=== PATIENT | female | born 1965 | race Caucasian/White ===

== ENCOUNTER 2018-08-26 01:06 | Outpatient (CLI) | payer OTHER, SELFPAY ==
--- NOTE | 2018-08-26 07:45 | DI.MAMMO_ITS ---
SYMPTOMS/DIAGNOSIS: SCREENING, Z12.31 MAMMOGRAM: Mammograms were interpreted according to the usual protocol including computer analysis with CAD system, tomosynthesis and C view imaging. Comparison with prior examinations. Breast density C. No suspicious masses or microcalcifications are seen. There is no definite evidence of malignancy. IMPRESSION: Negative mammogram. Routine screening is recommended. Category I. MQSA ASSESSMENT OF FINDINGS: Negative. Category 1. Patient will receive a letter notifying them of these results. Bi-RADS category C. The breasts are heterogeneously dense, which may obscure small masses.
== END 2018-08-26 01:26 ==
PROVIDERS: Visit Provider Nurse Practitioner Family
DX: Z12.31 Encounter for screening mammogram for malignant neoplasm of breast (principal)
CPT/HCPCS: 77063; 77067

== ENCOUNTER 2019-05-04 02:27 | Outpatient (CLI) | payer OTHER, SELFPAY ==
[2019-05-04 07:44] LABS: Abs Immature Grans 0.01 k/cumm (0.0-0.09); Absolute Basophil Count 0.05 k/cumm (0.0-0.2); Absolute Eosinophil Count 0.12 k/cumm (0.0-0.7); Absolute Lymphocyte Count 1.38 k/cumm (1.2-3.4); Absolute Monocyte Count 0.33 k/cumm (0.11-0.7); Absolute Neutrophil Count 2.65 k/cumm (1.2-6.7); Basophils % 1.1; Eosinophils % 2.6; HCT 37.6 % (36.0-46.0); HGB 12.5 g/dL (12.0-15.5); Immature Grans % 0.2; Lymphocytes % 30.4; Mean Corp. HGB Concentration 33.2 g/dL (32.0-36.0); Mean Corpuscular Volume 87.2 fL (80-95); Mean Platelet Volume 10.2 fL (8.0-11.0); Monocytes % 7.3; Neutrophils % 58.4; Platelet Count 198 x1000/uL (130-400); RBC 4.31 m/cumm (4.00-5.20); RBC Distribution Width 13.1 % (11.7-14.6); White Blood Cell Count 4.54 k/cumm (4.4-10.8)
[2019-05-04 08:09] LABS: Hemoglobin A1C 5.5 % (4.5-6.2)
[2019-05-04 08:56] LABS: ALT 20 U/L (14-59); AST 6 U/L (15-37); Albumin 3.7 g/dL (3.4-5.0); Alkaline Phosphatase 61 U/L (46-116); BUN 14 mg/dL (7-18); Bilirubin, Total 0.4 mg/dL (0.2-1.0); CREATININE 0.69 mg/dL (0.55-1.02); Calcium 8.9 mg/dL (8.5-10.1); Calculated LDL 74 mg/dL; Chloride 105 mmol/L (98-107); Cholesterol 153 mg/dL (50-200); Glucose 89 mg/dL (70-100); HDL Cholesterol 69 mg/dL (40-60); Potassium 4.5 mmol/L (3.5-5.1); Sodium 140 mmol/L (136-145); Total Protein 6.7 g/dL (6.4-8.2); Triglyceride 52 mg/dL (30-150)
== END 2019-05-04 02:47 ==
PROVIDERS: PCP Nurse Practitioner Family; Visit Provider Nurse Practitioner Family
DX: Z00.00 Encounter for general adult medical examination without abnormal findings (principal); Z13.220 Encounter for screening for lipoid disorders; Z13.228 Encounter for screening for other metabolic disorders; Z13.0 Encounter for screening for diseases of the blood and blood-forming organs and certain disorders involving the immune mechanism; Z13.1 Encounter for screening for diabetes mellitus
CPT/HCPCS: 36415; 80053; 80061; 83036; 85025

== ENCOUNTER 2019-09-13 01:32 | Outpatient (CLI) | payer OTHER, SELFPAY ==
--- NOTE | 2019-09-13 13:12 | DI.MAMMO_ITS ---
EXAM: MG MAMMO SCREENING CLINICAL HISTORY: Screening,z12.39 TECHNIQUE: Bilateral full field digital CC and MLO mammographic images were obtained with 3D tomosyn thesis and utilizing computer aided detection (CAD). COMPARISON: Available for comparison. FINDINGS: Masses/Architectural Distortion: None seen. Microcalcifications: No suspicious pleomorphic-type are seen. Skin Thickening/Nipple Retraction: None. IMPRESSION: 1. No significant interval change with no specific features of malignancy noted. 2. Unless there is more urgent need, screening mammography is recommended, as per [employer] guidelines. ACR BI-RAD Category- 1 Negative Breast Density - Category C - Heterogeneously dense The mammogram demonstrates the patient's breast tissue is dense. Dense breast tissue is very common a nd is not abnormal but dense breast tissue can make it harder to find cancer on a mammogram. Also, de nse breast tissue may increase their breast cancer risk. This information about the result of the [facility] mogram report was provided to the patient to raise their awareness. Use this report when you speak wi th the patient about their risks for breast cancer, which includes their family history. At that time , you may recommend for more screening tests (Ultrasound or MRI) as they might be useful based on the ir risk. A negative radiographic report should not delay biopsy if a dominant or clinically suspicious mass is present. Up to ten percent of cancers are not identified on mammography. A negative report may reinforce clinical impression. Adenosis and dense breasts may obscure an underlying neoplasm. False positive reports average 6 to 10%. Patient will receive a letter notifying them of these results.
== END 2019-09-13 01:52 ==
PROVIDERS: PCP Nurse Practitioner Family; Visit Provider Nurse Practitioner Family
DX: Z12.31 Encounter for screening mammogram for malignant neoplasm of breast (principal)
CPT/HCPCS: 77063; 77067

== ENCOUNTER 2019-10-24 07:14 | Outpatient (CLI) | payer OTHER, SELFPAY ==
[2019-10-24 08:16] LABS: Bilirubin Negative (Negative); Blood Negative (Negative); Clarity Clear (Clear); Glucose Negative (Negative); Ketones Negative (Negative); Leukocyte Esterase Negative (Negative); Nitrite Negative (Negative); Specific Gravity 1.025 (1.005-1.025); Urobilinogen 0.2 EU/dL (Up TO 0.2); pH 5.5 (5-8)
[2019-10-24 09:02] LABS: Anion Gap 7.2 mmol/L (3-11); BUN 13 mg/dL (7-18); CO2 29.8 mmol/L (21.0-32.0); CREATININE 0.79 mg/dL (0.55-1.02); Calcium 8.6 mg/dL (8.5-10.1); Chloride 103 mmol/L (98-107); Glucose 92 mg/dL (74-106); Potassium 4.4 mmol/L (3.5-5.1); Sodium 140 mmol/L (136-145)
[2019-10-24 09:02] LABS: Microalb ug/mg Crea 2.8 ug/mg Cr
== END 2019-10-24 07:34 ==
PROVIDERS: PCP Nurse Practitioner Family; Visit Provider Transplant Surgery
DX: Z00.5 Encounter for examination of potential donor of organ and tissue (principal)
CPT/HCPCS: 36415; 80048; 86900; 86901; 81003; 82043; 82570; 87086

== ENCOUNTER 2020-10-03 01:21 | Outpatient (CLI) | payer OTHER, SELFPAY ==
--- NOTE | 2020-10-03 12:54 | DI.MAMMO_ITS ---
EXAM: MAMMO SCREENING CLINICAL HISTORY: screening,Z12.39 TECHNIQUE: Mammograms were interpreted according to the usual protocol including computer analysis w [employer] CAD system, tomosynthesis and C-view imaging. COMPARISON: 2011 through 2019 FINDINGS: The breasts are composed of heterogeneously dense fibroglandular densities, Breast Density category C . No suspicious masses or suspicious microcalcifications are seen. No skin thickening or abnormal axillary lymph nodes are seen. There has been no significant change from prior exams. Mild vascular calcifications are incidentally noted. IMPRESSION: BI-RADS Category 1, Negative mammogram. Yearly screening mammography is recommended. Breast Density Category C, heterogeneously Dense. The mammogram demonstrates the patient's breast tissue is dense. Dense breast tissue is very common a nd is not abnormal but dense breast tissue can make it harder to find cancer on a mammogram. Also, de nse breast tissue may increase breast cancer risk. This information about the result of the mammogram report was provided to the patient to raise their awareness. Use this report when you speak with the patient about their risks for breast cancer, which includes their family history. At that time, you may recommend additional screening tests (Ultrasound or MRI) as they might be useful based on their r isk. A negative radiographic report should not delay biopsy if a dominant or clinically suspicious mass is present. Up to ten percent of cancers are not identified on mammography. A negative report may reinforce clinical impression. Adenosis and dense breasts may obscure an underlying neoplasm. False positive reports average 6 to 10%.
== END 2020-10-03 01:22 ==
PROVIDERS: PCP Nurse Practitioner Family; Visit Provider Nurse Practitioner Family
DX: Z12.31 Encounter for screening mammogram for malignant neoplasm of breast (principal)
CPT/HCPCS: 77063; 77067

== ENCOUNTER 2020-10-03 12:38 | Outpatient (REF) | payer OTHER, SELFPAY ==
--- NOTE | 2020-10-03 11:30 | PAPFT_PTH ---
PATIENT: Danielle Kim LOC: [facility] U#:[id number] AGE/SX: 55/F ROOM: RE10/03/[address]: CHARO Mojica : 1965 BED: DIS: 10/03/2020 SPEC #: [id number] RECD: 10/03/20 17:52 STATUS: SHAJI RERoque #: [id number] LORRIE: 10/03/20 11:[address]: Jenifer Meehan DEPT: [facility] Cytology RECD BY: Tanya Ramirez ENTERED: 10/03/20 17:53 SP TYPE: PAPFT BOLA DR: CHARO Hartman Tissues: 1 - CX/ENDOCX FOR PAP SMEARS Procedures: PAP THIN PREP/UVM Screening HPV DNA PROBE Comments: [id number]
== END 2020-10-03 12:39 | disposition home or self-care (01) ==
LOC: LBN 12:38
PROVIDERS: PCP Nurse Practitioner Family; Visit Provider Nurse Practitioner Family
DX: Z12.4 Encounter for screening for malignant neoplasm of cervix (principal); Z11.51 Encounter for screening for human papillomavirus (HPV)
CPT/HCPCS: 88142; 87624

== ENCOUNTER 2021-08-25 14:06 | Outpatient (REF) | payer OTHER, SELFPAY | END 2021-08-25 14:07 | disposition home or self-care (01) | LOC: LBN 14:06 | PROVIDERS: PCP Nurse Practitioner Family; Visit Provider Nurse Practitioner Family ==

== ENCOUNTER 2021-09-10 11:55 | Outpatient (REF) | payer OTHER, SELFPAY ==
[2021-09-10 16:54] LABS: Bilirubin Negative (Negative); Blood Negative (Negative); Clarity Clear (Clear); Glucose Negative (Negative); Ketones Negative (Negative); Leukocyte Esterase Negative (Negative); Nitrite Negative (Negative); Specific Gravity >= 1.030 (1.005-1.025); Urobilinogen 0.2 EU/dL (Up TO 0.2); pH 5.5 (5-8)
[2021-09-10 18:28] LABS: Anion Gap 4.2 mmol/L (3-11); BUN 20 mg/dL (7-18); CO2 32.8 mmol/L (21.0-32.0); CREATININE 1.1 mg/dL (0.55-1.02); Calcium 9.4 mg/dL (8.5-10.1); Chloride 102 mmol/L (98-107); Estimated GFR 51.57 (mL/min/1.73m2); Glucose 92 mg/dL (74-106); Sodium 139 mmol/L (136-145)
[2021-09-10 18:31] LABS: COMMENT (LAB VIEW ONLY) 181.46 mg/dL; Microalb ug/mg Crea 2.8 ug/mg Cr
== END 2021-09-10 13:02 | disposition home or self-care (01) ==
LOC: LBO 11:55
PROVIDERS: PCP Nurse Practitioner Family; Visit Provider Transplant Surgery
DX: Z52.9 Donor of unspecified organ or tissue (principal)
CPT/HCPCS: 36415; 80048; 81003; 82043; 82570

== ENCOUNTER 2021-10-01 01:53 | Outpatient (CLI) | payer OTHER, SELFPAY ==
[2021-10-01 14:19] LABS: Bilirubin Negative (Negative); Blood Negative (Negative); Clarity Clear (Clear); Glucose Negative (Negative); Ketones Negative (Negative); Leukocyte Esterase Negative (Negative); Nitrite Negative (Negative); Specific Gravity 1.015 (1.005-1.025); Urobilinogen 0.2 EU/dL (Up TO 0.2); pH 5.5 (5-8)
[2021-10-01 15:40] LABS: Anion Gap 8.2 mmol/L (3-11); BUN 19 mg/dL (7-18); CO2 28.8 mmol/L (21.0-32.0); CREATININE 1.1 mg/dL (0.55-1.02); Calcium 9.4 mg/dL (8.5-10.1); Chloride 103 mmol/L (98-107); Estimated GFR 51.38 (mL/min/1.73m2); Glucose 87 mg/dL (74-106); Potassium 4.6 mmol/L (3.5-5.1); Sodium 140 mmol/L (136-145)
== END 2021-10-01 01:54 | disposition home or self-care (01) ==
LOC: LBO 01:53
PROVIDERS: PCP Nurse Practitioner Family; Visit Provider Transplant Surgery
DX: Z52.89 Donor of other specified organs or tissues (principal)
CPT/HCPCS: 36415; 80048; 81003

== ENCOUNTER → 2022-01-01 00:33 | Outpatient (CLI) | payer OTHER, SELFPAY ==
--- NOTE | 2022-01-01 12:50 | DI.MAMMO_ITS ---
Exam(s) MAMMO SCREENING EXAM: MAMMO SCREENING CLINICAL HISTORY: screening TECHNIQUE: Mammograms were interpreted according to the usual protocol including computer analysis w [employer] CAD system, tomosynthesis and C-view imaging. COMPARISON: FINDINGS: The breasts are heterogeneously dense. No dominant mass or clumped microcalcification is identified in either breast. The current examination is compared with previous examinations including September 2020 and there has been no gross interval change in appearance in comparison with the prior studies. IMPRESSION: No specific evidence of malignancy at this time. Routine screening examinations are suggested at yea rly intervals in this age group according to the ACS ACR guidelines. BI-RADS Category 1 - Negative Breast Density - Category C - Heterogeneously dense
== END ==
PROVIDERS: PCP Nurse Practitioner Family; Visit Provider Nurse Practitioner Family
DX: Z12.31 Encounter for screening mammogram for malignant neoplasm of breast (principal)
CPT/HCPCS: 77063; 77067

== ENCOUNTER 2022-03-25 03:24 | Outpatient (CLI) | payer OTHER, SELFPAY ==
[2022-03-25 10:15] LABS: Bilirubin Negative (Negative); Blood Negative (Negative); Clarity Clear (Clear); Glucose Negative (Negative); Ketones Negative (Negative); Leukocyte Esterase Negative (Negative); Nitrite Negative (Negative); Urobilinogen 0.2 EU/dL (Up TO 0.2); pH 5.5 (5-8)
[2022-03-25 10:37] LABS: Anion Gap 3.5 mmol/L (3-11); BUN 18 mg/dL (7-18); CO2 31.5 mmol/L (21.0-32.0); Calcium 9.1 mg/dL (8.5-10.1); Chloride 103 mmol/L (98-107); Estimated GFR 57.35 (mL/min/1.73m2); Glucose 98 mg/dL (74-106); Potassium 4.5 mmol/L (3.5-5.1); Sodium 138 mmol/L (136-145)
[2022-03-25 10:41] LABS: COMMENT (LAB VIEW ONLY) 56.09 mg/dL; Microalb ug/mg Crea 12.1 ug/mg Cr
== END 2022-03-25 03:25 | disposition home or self-care (01) ==
LOC: LBO 03:25
PROVIDERS: PCP Nurse Practitioner Family; Visit Provider Transplant Surgery
DX: Z52.4 Kidney donor (principal)
CPT/HCPCS: 36415; 80048; 81003; 82043; 82570

== ENCOUNTER 2022-05-06 09:40 | Outpatient (CLI) | payer OTHER, SELFPAY ==
[2022-05-06 12:06] LABS: Hemoglobin A1C 5.4 % (<5.7)
== END 2022-05-06 09:41 | disposition home or self-care (01) ==
LOC: LBO 09:40
PROVIDERS: PCP Nurse Practitioner Family; Visit Provider Transplant Surgery
DX: Z52.9 Donor of unspecified organ or tissue (principal)
CPT/HCPCS: 36415; 83036

== ENCOUNTER 2023-01-18 10:50 | Outpatient (REF) | payer OTHER, SELFPAY ==
--- NOTE | 2023-01-18 10:45 | DI.RAD_ITS ---
Exam(s) XR HUMERUS RT EXAM: XR HUMERUS RT CLINICAL HISTORY: evaluate patholgoy. TECHNIQUE: 2D digital imaging was performed. COMPARISON: No exams were available for comparison FINDINGS: 3 views No evidence of humerus fracture or dislocation. Main finding is a prominent chunk of calcification in the rotator cuff region subacromial space consi stent with calcific rotator cuff tendinitis. IMPRESSION: Calcific rotator cuff tendinitis/bursitis. DATA REPOSITORY: RADIATION DOSE DELIVERED:
--- NOTE | 2023-01-18 10:45 | DI.RAD_ITS ---
Exam(s) XR SHOULDER RT COMPLETE 2+V EXAM: XR SHOULDER RT COMPLETE 2+V CLINICAL HISTORY: evaluate pathology. TECHNIQUE: 2D digital imaging was performed. COMPARISON: No exams were available for comparison FINDINGS: Four views: No evidence of acute fracture or dislocation nor diminution of the subacromial space. No degenerativ e changes. The main finding here is a prominent chunk of calcium in the lateral subacromial space ju st above the greater tuberosity consistent with calcific rotator cuff tendinitis-bursitis. This calc ific density measures approximately 11 by 4 mm. IMPRESSION: Calcific rotator cuff tendinitis. DATA REPOSITORY: RADIATION DOSE DELIVERED:
--- NOTE | 2023-01-18 11:22 | DI.VRAD_ITS ---
PROCEDURE INFORMATION: Exam: XR Right Humerus Exam date and time: 01/18/2023 10:59 AM Age: 57 years old Clinical indication: Pain; Upper arm; Right TECHNIQUE: Imaging protocol: Radiologic exam of the right humerus. Views: 2 or more views. COMPARISON: No relevant prior studies available. FINDINGS: Bones/joints: No fractures or suspicious osseous lesions are identified in the right humerus. Soft tissues: There is a crescentic focus of calcification in the soft tissues of the acromiohumeral interval which may reflect calcific rotator cuff tendinopathy or calcific bursitis. IMPRESSION: 1. No abnormality identified in the right humerus. 2. Findings suggesting calcific rotator cuff tendinopathy or calcific bursitis in the right shoulder. Dictated and Authenticated by: Josette Pritchard MD. Ordering:SHIRLEY Velarde MD
--- NOTE | 2023-01-18 11:24 | DI.VRAD_ITS ---
PROCEDURE INFORMATION: Exam: XR Right Shoulder Exam date and time: 01/18/2023 11:02 AM Age: 57 years old Clinical indication: Pain; Shoulder; Left TECHNIQUE: Imaging protocol: Radiologic exam of the right shoulder. Views: 5 views. COMPARISON: No relevant prior studies for comparison. FINDINGS: Bones/joints: No fractures or suspicious osseous lesions are identified. Acromioclavicular and glenohumeral alignment are anatomic. Joint spaces are maintained. There are no significant osseous productive changes. The humeral head is not high-riding. Soft tissues: There is a crescentic focus of calcification in the soft tissues superior to the greater tuberosity. This can be seen with calcific rotator cuff tendinopathy or calcific bursitis. IMPRESSION: Calcific rotator cuff tendinopathy or calcific bursitis in the right shoulder. Dictated and Authenticated by: Josette Pritchard MD. Ordering:SHIRLEY Velarde MD
== END 2023-01-18 11:10 ==
LOC: DI 10:50
PROVIDERS: PCP Nurse Practitioner Family; Visit Provider Nurse Practitioner Family
DX: M75.31 Calcific tendinitis of right shoulder; M25.511 Pain in right shoulder
CPT/HCPCS: 73030; 73060

== ENCOUNTER 2023-02-03 14:08 | Outpatient (CLI) | payer OTHER, SELFPAY ==
[2023-02-03 15:19] LABS: COMMENT (LAB VIEW ONLY) 72.32 mg/dL
[2023-02-03 15:20] LABS: Bilirubin Negative (Negative); Blood Negative (Negative); Clarity Clear (Clear); Glucose Negative (Negative); Ketones Negative (Negative); Leukocyte Esterase Negative (Negative); Nitrite Negative (Negative); Specific Gravity 1.015 (1.005-1.025); Urobilinogen 0.2 mg/dL (Up to 0.2)
[2023-02-03 15:26] LABS: BUN 20 mg/dL (7-18); CREATININE 0.9 mg/dL (0.55-1.02); Calcium 9.4 mg/dL (8.5-10.1); Chloride 101 mmol/L (98-107); Estimated GFR 74.57 (mL/min/1.73m2); Glucose 92 mg/dL (74-106); Potassium 4.3 mmol/L (3.5-5.1); Sodium 139 mmol/L (136-145)
== END 2023-02-03 14:09 | disposition home or self-care (01) ==
LOC: LBO 14:10
PROVIDERS: PCP Nurse Practitioner Family; Visit Provider Transplant Surgery
DX: Z52.9 Donor of unspecified organ or tissue (principal)
CPT/HCPCS: 36415; 80048; 81003; 82043; 82570

== ENCOUNTER 2023-03-16 08:45 | Outpatient (CLI) | payer OTHER, SELFPAY ==
--- NOTE | 2023-03-16 14:55 | DI.MAMMO_ITS ---
Exam(s) MAMMO SCREENING EXAM: MAMMO SCREENING CLINICAL HISTORY: screening,z12.39. TECHNIQUE: Bilateral full field digital CC and MLO mammographic images were obtained with 3D tomosyn thesis and utilizing computer aided detection (CAD). COMPARISON: Prior mammograms were reviewed. FINDINGS: Fibroglandular tissue is again noted be moderately dense. There are no CAD designations. No new obvious findings in left breast. In the right breast on the MLO view there suggestion of asymmetric density-possible nodule located 5 cm in from the nipple on the 3D MLO view and measuring approximately 5 x 4 mm. There is no significant architectural distortion nor skin thickening-retraction. IMPRESSION: Dense bilateral fibroglandular tissue. No radiographic evidence of malignancy in left breast. Right breast asymmetric density-possible nodule. Compression view and ultrasound recommended. BI-RADS Category 0 - Assessment Incomplete: Need additional imaging evaluation Breast Density - Category C - Heterogeneously dense Breast density Category C or D implies that the patient has dense breast tissue. Dense breast tissue can make it harder to find cancer on a mammogram. Dense breast tissue is also associated with an incr eased risk of breast cancer. This information about the result of the mammogram report was provided to the patient to raise their awareness. Use this report when you speak with the patient about their risks for breast cancer, which includes their family history. At that time, you may recommend additional screening tests (Ultrasoun d or MRI) as these tests may add significant information. A negative radiographic report should not delay biopsy if a dominant or clinically suspicious mass is present. Up to ten percent of cancers are not identified on mammography. A negative report may reinforce clinical impression. Adenosis and dense breasts may obscure an underlying neoplasm. False positive reports average 6 to 10%. Patient will receive a letter notifying them of these results.
== END 2023-03-16 09:05 ==
LOC: DI 08:46
PROVIDERS: PCP Nurse Practitioner Family; Visit Provider Nurse Practitioner Women's Health
DX: Z12.31 Encounter for screening mammogram for malignant neoplasm of breast (principal)
CPT/HCPCS: 77063; 77067

== ENCOUNTER 2023-03-24 00:50 | Outpatient (CLI) | payer OTHER, SELFPAY ==
--- NOTE | 2023-03-24 | DI.MAMMO_ITS ---
Exam(s) MG MAMMO SCREEN CALL BACK UNI US BREAST RT COMPLETE EXAM: MG MAMMO SCREEN CALL BACK UNI-RIGHT AND COMPLETE RIGHT BREAST ULTRASOUND CLINICAL HISTORY: F/U MAMMO, ASYMMETRIC DENSITY POSSIBLE NODULE RT BREAST. TECHNIQUE: Unilateral spot mammographic images obtained with 3D tomosynthesisand utilizing computer aided detection (CAD). . Complete RIGHT breast Ultrasound was also performed, including all 4 quadrants, the retroareolar bartolo on, and the ipsilateral axilla. COMPARISON: Prior mammograms were reviewed. This additional imaging was performed due to findings described on the recent screening mammogram of 03/16/2023. FINDINGS: DIAGNOSTIC MAMMOGRAM: Additional mammographic views performed todayrender this area less concerning.The nodular density see n in the right breast on recent screening mammogram is less evident on this additional spot compressi on 3D view. COMPLETE RIGHT BREAST ULTRASOUND: Ultrasound performed today reveals no solid lesions in all 4 quadrants.. There are 2 microcysts note d... At the 9 o'clock position there is a 5 x 3 millimeter microcyst. At the 8-9 o'clock position there is a 4 x 2 mm microcyst. Scanning of the ipsilateral axilla reveals no significant adenopathy. IMPRESSION: 1. Benign appearing findings as described above. 2. One of the benign microcysts seen on the ultrasound may correspond to nodular density described o n the recent screening mammogram (which is actually less evident on the additional spot compression m ammographic view performed today) Appropriate follow-up as discussed by myself with the patient today is repeat right breast MAMMOGRAM in 6 months, with earlier imaging if a self detected breast change is noted. BI-RADS Category 3 - 6 month - Probably Benign Finding: Recommend follow-up mammography in 6 months Breast Density - Category C - Heterogeneously dense Breast density Category C or D implies that the patient has dense breast tissue. Dense breast tissue can make it harder to find cancer on a mammogram. Dense breast tissue is also associated with an incr eased risk of breast cancer. This information about the result of the mammogram report was provided to the patient to raise their awareness. Use this report when you speak with the patient about their risks for breast cancer, which includes their family history. At that time, you may recommend additional screening tests (Ultrasoun d or MRI) as these tests may add significant information. A negative radiographic report should not delay biopsy if a dominant or clinically suspicious mass is present. Up to ten percent of cancers are not identified on mammography. A negative report may reinforce clinical impression. Adenosis and dense breasts may obscure an underlying neoplasm. False positive reports average 6 to 10%. Patient will receive a letter notifying them of these results.
== END 2023-03-24 01:10 ==
LOC: DI 00:50
PROVIDERS: PCP Nurse Practitioner Family; Visit Provider Nurse Practitioner Women's Health
DX: Z12.31 Encounter for screening mammogram for malignant neoplasm of breast (principal)
CPT/HCPCS: 76642; 77063; 77067

== ENCOUNTER → 2023-05-07 00:39 | Outpatient (CLI) | payer OTHER, SELFPAY ==
--- NOTE | 2023-05-07 08:15 | DI.MRI_ITS ---
Exam(s) MR UPPER JOINT RT WO EXAM: MR UPPER JOINT RT WO CLINICAL HISTORY: PAIN,calcific tendinitis rt shoulder, m75.31. TECHNIQUE: Multiplanar multisequence MRI was performed. COMPARISON: CR,XR XR SHOULDER RT COMPLETE 2+V from 01/18/2023 FINDINGS: BONES: There is no fracture or contusion pattern. JOINTS: Mild degenerative changes of the acromioclavicular joint. The glenohumeral joint is normal. TENDONS: Supraspinatus: There is tendinosis of the supraspinatus. There is a focus of hyperintense signal see n in the supraspinatus tendon suspicious for partial tear. (Series 9001, image 16). Infraspinatus: Unremarkable. Subscapularis: Unremarkable. Teres Minor: Unremarkable. Biceps and Regan: Unremarkable. MUSCLES: Unremarkable. GLENOID LABRUM: Unremarkable on this noncontrast examination. SOFT TISSUES: Unremarkable. LIGAMENTS: Unremarkable. OTHER: There is a small amount of fluid in the subacromial subdeltoid bursa. IMPRESSION: 1. Partial intrasubstance tear of the supraspinatus tendon as described above. 2. Small amount of fluid in the subacromial subdeltoid bursa which may represent bursitis. DATA REPOSITORY:
== END ==
PROVIDERS: PCP Nurse Practitioner Family; Visit Provider Student in an Organized Health Care Education/Training Program
DX: M75.111 Incomplete rotator cuff tear or rupture of right shoulder, not specified as traumatic (principal)
CPT/HCPCS: 73221

== ENCOUNTER 2023-07-27 15:56 | Outpatient (CLI) | payer OTHER, SELFPAY ==
[2023-07-27 12:37] LABS: Anion Gap 4.9 mmol/L (3-11); BUN 18 mg/dL (7-18); CO2 30.1 mmol/L (21.0-32.0); Calcium 9.6 mg/dL (8.5-10.1); Calculated LDL 95 mg/dL (<100); Chloride 104 mmol/L (98-107); Cholesterol 191 mg/dL (<200); Estimated GFR 65.71 (mL/min/1.73m2); Glucose 91 mg/dL (74-106); HDL Cholesterol 89 mg/dL (40-60); Potassium 4.5 mmol/L (3.5-5.1); Sodium 139 mmol/L (136-145); TSH (W/Ref FT4) 2.42 uIU/mL (0.36-3.74); Triglyceride 37 mg/dL (<150)
[2023-07-27 12:59] LABS: COMMENT (LAB VIEW ONLY) 111.48 mg/dL; Microalb ug/mg Crea 5.9 ug/mg Cr
[2023-07-28 11:21] LABS: Hepatitis C Ab w Rflx HCV PCR Negative (Negative)
== END 2023-07-27 15:57 | disposition home or self-care (01) ==
LOC: LBO 15:56
PROVIDERS: PCP Nurse Practitioner Family; Visit Provider Nurse Practitioner Family
DX: N18.30 Chronic kidney disease, stage 3 unspecified (principal); Z00.00 Encounter for general adult medical examination without abnormal findings; Z90.5 Acquired absence of kidney
CPT/HCPCS: 36415; 80048; 80061; 86803; 82043; 82570; 84443

== ENCOUNTER 2023-08-17 10:36 | Day surgery (SDC) | payer OTHER, SELFPAY ==
--- NOTE | 2023-08-17 08:21 | PDOC.DSDIS_ITS ---
Date of service: 08/17/23 Time of Service: 08:24 Discharge Plan Disposition Patient Disposition: Home Condition: Good Discharge Details Reason For Visit: Left thumb cyst Attending Provider: Larry Figueredo Primary Care Provider: Carina Smith Home Meds and New Rx's Prescriptions: No Action estradiol 0.01 % (0.1 mg/gram) cream 1 g vaginal QWEEK Tylenol Extra Strength 500 mg powder in packet 500 mg PO Q6H PRN Discharge Instructions Additional Instructions: Thumb Cyst Excision Discharge Instructions Activity: You should keep the hand/thumb elevated as much as possible for the first few days. You may use the other fingers as tolerated but avoid trying to do too much too soon. You may perform light activities with the dressing in place. Dressing/Cast: Your dressing should stay in place at all times for 72 hours. You may loosen the LETICIA wrap if you feel it is too tight and then rewrap more loosely. After 72 hours you may remove, clean and cover with a clean dressing. Medications: - You should take Tylenol and Ibuprofen for baseline pain control. - You may apply ice over the thumb. Follow-up: 10-14 days Referrals: Larry Figueredo MD [ [facility] STAFF PHYSICIAN] - Activity:: Elevate Remove Dressings/Wound Care:: 72 hours Shower/Bathe:: 72 hours and Cover Diet:: As Tolerated Discharge Orders Discharge Orders: Discharge Order (Routine); Ordered 08/17/23 Ordered By: Alea Valdovinos
[2023-08-17 10:51] VITALS: BP 108/74; PULSE 74; RESP 16; TEMP 36.6; O2SAT 100
[2023-08-17] MEDS: Lidocaine 1% Multi-Dose W/EPI 1/100,000 50 ML VIAL (11:35)
[2023-08-17] MEDS: Sodium Bicarbonate 50 MEQ/50 ML VIAL (11:35)
[2023-08-17 11:56] VITALS: BP 110/81; PULSE 69; RESP 16; TEMP 36.6; O2SAT 99
--- NOTE | 2023-08-17 12:55 | ROE_ITS ---
Date of service: 08/17/23 Time of Service: 12:00 Operative Note Operative Note DATE OF PROCEDURE: 08/17/23 PRE-OP DIAGNOSIS: Left Palmar Thumb Cyst POST-OP DIAGNOSIS: same PROCEDURE: Cyst Excision - Left Thumb SURGEON: Larry Figueredo ANESTHESIA TYPE: Local By Surgeon Refer to Anesthesia Record ESTIMATED BLOOD LOSS: 0 PATHOLOGY: none sent COMPLICATIONS: None Patient was transported to: same day Patient's condition: stable Indications: I have seen Lindsey in clinic for symptoms of a cyst about the palmar left thumb. The mass persisted and caused pain to direct contact and with use. The diagnosis of a cyst was made. The symptoms had not responded to conservative measures. I discussed cyst excision with the patient. I reviewed the risks of the procedure to include, but not limited to, bleeding, infection, pain, stiffness, recurrence, damage to nerves or vessels. Despite these risks, the patient elected to proceed. Findings: There was a cystic structure seen overlying the palmar?ulnar aspect of the thumb, adjacent to the IP flexion crease. There was a central seed which was resected with surrounding skin. There is a small capsule with gelatinous cyst type material. There is no true stalk identified. This was traced back to the thumb but there is no connection to the underlying IP joint identified, nor connection to the tendon. Procedure Description: Lindsey was greeted in the preoperative holding area where the correct side was identified and marked. The consent was reviewed with the patient and signed. All questions were answered. She was taken back to the operating room. The patient was placed into the supine position on the operating room table with the left arm on an arm board. All bony prominences were well padded. No prophylactic antibiotics were administered since this was a clean, elective hand surgical case. The left arm was then prepped with Chloraprep and draped in a standard fashion with stockinette and extremity drape. A timeout to confirm correct identity, side and site, procedure, allergies, anesthesia, and medical concerns was performed. A local field block was then performed using 1% lidocaine with epinephrine and buffered with sodium bicarbonate. This was allowed time to set up completely and was tested before proceeding with the case. A longitudinal incision was then made overlying the cyst, ellipsing out a full- thickness area of skin including a dense area centrally. The skin was incised sharply. This was inspected and showed a central dense hyper-keratin area, similar to a corn seed, which was within this skin flap. Full-thickness flaps were then elevated to expose the cyst. The cyst capsule was less distinct than I was expecting. Debridement of this area then identified some gelatinous type material with a small amount of synovial fluid. This was excised sharply. I then utilized a rongeur to remove any remaining cystic type tissue. Interestingly, the dermis in this layer was quite thick, suggesting this does not represent an overlying callus or corn from the underlying cystic change. There is no identifiable cystic structure traveling back towards the IP joint or the flexor tendon. The wound was then irrigated. The skin was then closed using a #4-0 nylon in interrupted fashion. The finger was dressed with Xeroform, 4 x 4, conform dressing. The patient tolerated the procedure well and was returned to the Same Day Surgery area in a stable condition suffering no known complication.
== END 2023-08-17 12:11 | disposition home or self-care (01) ==
LOC: SUR 10:36
PROVIDERS: PCP Nurse Practitioner Family; Visit Provider Student in an Organized Health Care Education/Training Program
PROC: (CPT 26160; principal; 2023-08-17 11:45)
DX: L72.8 Other follicular cysts of the skin and subcutaneous tissue (principal)
CPT/HCPCS: 11421

== ENCOUNTER → 2023-09-30 00:51 | Outpatient (CLI) | payer OTHER, SELFPAY ==
--- NOTE | 2023-09-30 | DI.US_ITS ---
Exam(s) MG MAMMO DIAGNOSTIC UNI US BREAST RT LIMITED EXAM: MG MAMMO DIAGNOSTIC UNI CLINICAL HISTORY: 6 month f/u of R breast,r92.8. COMPARISON: US US BREAST RT COMPLETE from 03/24/2023 US US BREAST RT LIMITED from 09/30/20232014 through 2022 mammograms TECHNIQUE: Craniocaudal and mediolateral oblique Full Field Digital Mammography views of the right b reast with Computer Aided Diagnosis followed by Tomosynthesis and right breast ultrasound. FINDINGS: Mammography/Tomosynthesis: Masses/Architectural Distortion: None seen. Microcalcifications: No suspicious pleomorphic-type are seen. Skin Thickening/Nipple Retraction: None. Right breast US: Echotexture: Normal appearance of the glandular tissue. Shadowing: No suspicious foci. Cyst: 5 millimeter cyst 9 o'clock position 1 cm from the nipple. 4 millimeter cyst 9 o'clock positio n. Solid lesions: None seen. Ductal dilation: None. IMPRESSION: 1. No evidence of malignancy is noted. 2. Unless there is more urgent need, follow-up screening mammography is recommended,, due in 6 months . BI-RADS Category 2 - Benign Findings Breast Density - Category C - Heterogeneously dense Breast density category C or D implies that the patient has dense breast tissue. Dense breast tissue is very common and is not abnormal but dense breast tissue can make it harder to find cancer on a ma mmogram. Also, dense breast tissue may increase their breast cancer risk. This information about the result of the mammogram report was provided to the patient to raise their awareness. Use this report when you speak with the patient about their risks for breast cancer, which includes their family hist ory. At that time, you may recommend for more screening tests (Ultrasound or MRI) as they might be us eful based on their risk. A negative radiographic report should not delay biopsy if a dominant or clinically suspicious mass is present. Up to ten percent of cancers are not identified on mammography. A negative report may reinforce clinical impression. Adenosis and dense breasts may obscure an underlying neoplasm. False positive reports average 6 to 10%. Patient will receive a letter notifying them of these results.
== END ==
PROVIDERS: PCP Nurse Practitioner Family; Visit Provider Nurse Practitioner Women's Health
DX: Z12.31 Encounter for screening mammogram for malignant neoplasm of breast (principal); R92.8 Other abnormal and inconclusive findings on diagnostic imaging of breast
CPT/HCPCS: 76642; 77061; 77065; G0279

== ENCOUNTER 2024-02-26 10:27 | Outpatient (REF) | payer OTHER, SELFPAY ==
[2024-02-26 16:31] LABS: Bilirubin Negative (Negative); Blood Negative (Negative); Clarity Cloudy (Clear); Glucose Negative (Negative); Ketones Negative (Negative); Leukocyte Esterase Negative (Negative); Nitrite Negative (Negative); Specific Gravity >= 1.030 (1.005-1.025); Urobilinogen 0.2 mg/dL (Up to 0.2); pH 5.5 (5-8)
== END 2024-02-26 10:28 | disposition home or self-care (01) ==
LOC: LBN 10:27
PROVIDERS: PCP Nurse Practitioner Family; Visit Provider Nurse Practitioner Family
DX: N76.0 Acute vaginitis (principal); N39.0 Urinary tract infection, site not specified
CPT/HCPCS: 81003; 87480; 87510; 87660

== ENCOUNTER 2024-08-03 02:15 | Outpatient (CLI) | payer OTHER, SELFPAY ==
--- NOTE | 2024-08-03 14:52 | DI.RAD_ITS ---
Exam(s) XR HIP LT COMPLETE AP PELVIS EXAM: XR HIP LT COMPLETE AP PELVIS CLINICAL HISTORY: left groin pain,lt inguinal pain, r10.32. TECHNIQUE: 2D digital imaging was performed. COMPARISON: No exams were available for comparison FINDINGS: Two views No evidence of pelvic nor hip fracture. No hip joint space narrowing. Additional lateral view of th e left hip reveals no osteophytes. Bone density normal. No osseous lesions. A pessary is noted IMPRESSION: No acute osseous findings in the pelvis and hips. DATA REPOSITORY: RADIATION DOSE DELIVERED:
== END 2024-08-03 02:35 ==
PROVIDERS: PCP Nurse Practitioner Family; Visit Provider Nurse Practitioner Family
DX: M25.552 Pain in left hip (principal)
CPT/HCPCS: 73502

== ENCOUNTER 2024-08-03 07:43 | Outpatient (CLI) | payer OTHER, SELFPAY ==
[2024-08-03 08:48] LABS: COMMENT (LAB VIEW ONLY) 135.25 mg/dL; Microalb ug/mg Crea 4.6 ug/mg Cr
[2024-08-03 08:53] LABS: ALT 16 U/L (14-59); AST 18 U/L (15-37); Albumin 3.9 g/dL (3.4-5.0); Alkaline Phosphatase 80 U/L (46-116); Anion Gap 7.8 mmol/L (3-11); BUN 15 mg/dL (7-18); Bilirubin, Total 0.54 mg/dL (0.2-1.0); CO2 27.2 mmol/L (21.0-32.0); Calcium 9.5 mg/dL (8.5-10.1); Chloride 107 mmol/L (98-107); Glucose 102 mg/dL (74-106); Potassium 4.3 mmol/L (3.5-5.1); Sodium 142 mmol/L (136-145); Total Protein 7.3 g/dL (6.4-8.2)
== END 2024-08-03 07:44 | disposition home or self-care (01) ==
LOC: LBO 07:44
PROVIDERS: PCP Nurse Practitioner Family; Visit Provider Nurse Practitioner Family
DX: Z90.5 Acquired absence of kidney (principal); K40.90 Unilateral inguinal hernia, without obstruction or gangrene, not specified as recurrent; R10.32 Left lower quadrant pain
CPT/HCPCS: 36415; 80053; 82043; 82570